=== PATIENT | female | born 1960 | race Asian ===

== ENCOUNTER 2021-12-23 11:41 | Emergency (ER) | payer OTHER ==
[2021-12-23 11:56] VITALS: BMI 27.4
[2021-12-23] MEDS ORDERED: ACETAMINOPHEN 1000 MG/100 ML BAG IVPB ONE (12:37)
[2021-12-23] MEDS ORDERED: SODIUM CHLORIDE 0.9% 1000 ML INFUS.BAG IV ONE (12:39)
[2021-12-23] MEDS ORDERED: ACETAMINOPHEN INJECTION 100 ML IVPB ONE (12:56)
[2021-12-23 12:57] LABS: INR 1.03 (0.83-1.09); PROTHROMBIN TIME (PATIENT) 11.8 SEC (9.7-13.0)
[2021-12-23 12:59] LABS: ACTIVATED PTT 30.6 SECONDS (25.2-36.5)
[2021-12-23 13:04] LABS: ALBUMIN 4.1 g/dl (3.4-5.0); ALK PHOS 58 U/L (45-117); ANION GAP 9 MMOL/L (8-16); CALCIUM 9.3 mg/dl (8.5-10); CHLORIDE 103 mmol/L (98-107); CO2 26 mmol/L (21-32); CREATININE 0.8 mg/dl (0.55-1.3); GLUCOSE,RANDOM 89 mg/dl (74-106); HEMATOCRIT 33.7 % (32.4-45.2); HEMOGLOBIN 11.4 G/dL (10.7-15.3); MCH 22.2 pg (25.7-33.7); MCHC 33.9 g/dl (32.0-36.0); MEAN CELL VOLUME 65.4 fl (80-96); MEAN PLT VOLUME 9.4 fl (7.5-11.1); PLATELET COUNT 260.2 10^3/uL (134-434); RBC 5.16 10^6/uL (3.60-5.2); RDW 18.6 % (11.6-15.6); SGOT/AST 20 U/L (15-37); SGPT/ALT 23 U/L (13-61); SODIUM 138 mmol/L (136-145); TOT PROT 6.7 g/dl (6.4-8.2); WHITE BLOOD COUNT 6.6 10^3/uL (4.0-10.8)
[2021-12-23 17:17] VITALS: BP 121/72; PULSE 57; TEMP 98.1
== END 2021-12-23 17:17 | disposition home or self-care (01) ==
LOC: FER 11:41
PROC: 3E033GC Introduction of Other Therapeutic Substance into Peripheral Vein, Percutaneous Approach (ICD-10-PCS; principal; 2021-12-23)
DX: R51.9 Headache, unspecified (principal); H53.8 Other visual disturbances
CPT/HCPCS: 36415; 70450-TC; 76512; 80053; 84484; 85025; 85610; 85730; 93005; 99285-25; C9803-CS; U0003; U0005

== ENCOUNTER 2023-05-16 11:35 | Emergency (ER) | payer OTHER ==
[2023-05-16 12:05] VITALS: BP 115/74; PULSE 83; RESP 16; TEMP 98.7; BMI 29.2
== END 2023-05-16 13:11 | disposition home or self-care (01) ==
LOC: FER 11:35
DX: R05.9 Cough, unspecified (principal); R09.81 Nasal congestion; U07.1 COVID-19; J06.9 Acute upper respiratory infection, unspecified
CPT/HCPCS: 0241U-QW; 71046-TC-FY; 99284-25